=== PATIENT | male | born 1960 | race Caucasian/White ===

== ENCOUNTER 2023-04-10 12:50 | Outpatient (CLI) | payer BC ==
[2023-04-10] MEDS ORDERED: Magnevist 469MG/ML 20 ML VIAL ONE (13:56)
== END 2023-04-10 12:51 | disposition home or self-care (01) ==
LOC: CSHMRI 12:50
PROVIDERS: ATTEND Otolaryngology
DX: H90.3 Sensorineural hearing loss, bilateral (principal)
CPT/HCPCS: 70553; A9579

== ENCOUNTER 2023-11-20 09:47 | Outpatient (CLI) | payer BC | END 2023-11-20 09:48 | disposition home or self-care (01) | LOC: CSHCT 09:47 | PROVIDERS: ATTEND Otolaryngology Plastic Surgery within the Head & Neck | DX: H90.42 Sensorineural hearing loss, unilateral, left ear, with unrestricted hearing on the contralateral side (principal); H74.93 Unspecified disorder of middle ear and mastoid, bilateral | CPT/HCPCS: 70480 ==

== ENCOUNTER 2024-01-25 06:23 | Day surgery (SDC) | payer BC ==
[2024-01-25] MEDS ORDERED: Mupirocin 2% Ointment 22 GM Tube ONE (08:23)
[2024-01-25] MEDS ORDERED: Rocuronium Bromide 10 MG/ML (10ML VIAL) ONE (08:23)
[2024-01-25] MEDS ORDERED: CEFAZOLIN 2 GM VIAL ONE (08:23)
[2024-01-25] MEDS ORDERED: EPINEPHrine 1 MG/ML VIAL ONE (08:23)
[2024-01-25] MEDS ORDERED: Lidocaine 1% PF 5 ML VIAL ONE (08:23)
[2024-01-25] MEDS ORDERED: Dexamethasone 20 MG/5 ML VIAL ONE (08:23)
[2024-01-25] MEDS ORDERED: PROPOFOL 20 ML ONE ×2 (08:23→08:24)
[2024-01-25] MEDS ORDERED: Fentanyl 250 MCG/5 ML VIAL ONE (08:23)
[2024-01-25] MEDS ORDERED: Ondansetron PF 4 MG/2 ML Vial ONE (08:23)
[2024-01-25] MEDS ORDERED: Midazolam HCl 2 mg/2 ml Vial ONE (08:23)
[2024-01-25] MEDS ORDERED: ePHEDrine Sulfate 50 MG/10 ML VIAL ONE (10:28)
[2024-01-25] MEDS ORDERED: Glycopyrrolate 0.2 MG/ML 5 ML SYRINGE ONE (10:29)
[2024-01-25] MEDS ORDERED: HYDROcodone/Acetaminophen 5/325 mg Tablet ONE (13:03)
== END 2024-01-25 13:35 | disposition home or self-care (01) ==
LOC: CSHSDC 06:23
PROVIDERS: ATTEND Otolaryngology Plastic Surgery within the Head & Neck
PROC: F0BZ09Z Cochlear Implant Rehabilitation Treatment using Cochlear Implant Equipment (ICD-10-PCS; principal; 2024-01-25)
DX: H90.42 Sensorineural hearing loss, unilateral, left ear, with unrestricted hearing on the contralateral side (principal); I10 Essential (primary) hypertension; Z79.899 Other long term (current) drug therapy; Z88.0 Allergy status to penicillin
CPT/HCPCS: 70250; 93005; 93010; C1713; J0171; J1100; J2250; J2405; J2704; J3010; L8614; Q9968